=== PATIENT | male | born 1960 | race Caucasian/White ===

== ENCOUNTER 2016-08-22 09:43 | Inpatient (IN) | payer BC ==
--- NOTE | 2016-08-22 10:45 | ED ---
Wayne Hernandez Benjamin, scribed for Ortega Gunderson MD on 08/22/16 at 1022 . HPI Chest Pain - HPI Summary HPI Summary: 56yo male brought in after his stress test showed concerning EKG readings. Pt got a stress test this morning for having on and off chest pain for the last month. Pt denies any CP currently. - History of Current Complaint Chief Complaint: EDChestPainROMI Time Seen by Provider: 08/22/16 09:58 Hx Obtained From: Patient, Family/Uniformer - Onset/Duration: Started Weeks Ago - 4 weeks, Still Present Timing: Intermittent Initial Severity: Moderate Current Severity: None Pain Intensity: 0 Pain Scale Used: 0-10 Numeric Chest Pain Location: Diffuse Chest Pain Radiates: No Aggravating Factor(s): Nothing Alleviating Factor(s): Nothing Associated Signs and Symptoms: Positive: Chest Pain - Allergy/Home Medications Allergies/Adverse Reactions: Allergies Allergy/AdvReac Type Severity Reaction Status Date / Time No Known Allergies Allergy Verified 08/22/16 10:12 PMH/Surg Hx/FS Hx/Imm Hx Endocrine/Hematology History: Reports: Hx Diabetes - Type II Cardiovascular History: Reports: Hx Angina, Hx Hypercholesterolemia, Hx Hypertension Infectious Disease History: No Infectious Disease History: Denies: Traveled Outside the [place] in Last 30 Days - Family History Known Family History: Positive: Cardiac Disease Negative: Hypertension, Diabetes - Social History Occupation: Employed Full-time Lives: With Family Alcohol Use: None Substance Use Type: Reports: None Smoking Status (MU): Former Smoker Type: Cigarettes Have You Smoked in the Last Year: No Review of Systems Constitutional: Negative Eyes: Negative ENT: Negative Positive: Chest Pain Respiratory: Negative Gastrointestinal: Negative Genitourinary: Negative Musculoskeletal: Negative Skin: Negative Neurological: Negative Psychological: Normal All Other Systems Reviewed And Are Negative: Yes Physical Exam Triage Information Reviewed: Yes Vital Signs On Initial Exam: Initial Vitals Temp Pulse Resp BP Pulse Ox 98.0 F 90 20 149/87 96 08/22/16 09:52 08/22/16 09:52 08/22/16 09:52 08/22/16 09:52 08/22/16 09:52 Vital Signs Reviewed: Yes Appearance: Positive: Well-Appearing, No Pain Distress, Well-Nourished Skin: Positive: Warm, Skin Color Reflects Adequate Perfusion, Dry Head/Face: Positive: Normal Head/Face Inspection Eyes: Positive: Normal ENT: Positive: Normal ENT inspection Neck: Positive: Supple, Nontender Respiratory/Lung Sounds: Positive: Clear to Auscultation, Breath Sounds Present Cardiovascular: Positive: RRR Abdomen Description: Positive: Nontender, Soft Bowel Sounds: Positive: Present Musculoskeletal: Positive: Normal Neurological: Positive: Normal Psychiatric: Positive: Affect/Mood Appropriate - Maynor Coma Scale Coma Scale Total: 15 Diagnostics - Vital Signs Vital Signs Temp Pulse Resp BP Pulse Ox 08/22/16 09:55 98.1 F 84 20 149/87 98 08/22/16 09:52 98.0 F 90 20 149/87 96 - Laboratory Lab Statement: Any lab studies that have been ordered have been reviewed, and results considered in the medical decision making process. - EKG 1004. Cardiac Rate: NL - 78bpm EKG Rhythm: Sinus Rhythm ST Segment: Normal Ectopy: None Chest Pain Course/Dx - Course Course Of Treatment: Discussed with Dr. Albright (pool installer) at 1029. Discussed with Dr. Khalil (hospitalist) at 1031. - Diagnoses Provider Diagnoses: Chest pain - Provider Notifications Discussed Care Of Patient With: Dr. Khalil 10:30 Instructed by Provider To: Admit As Inpatient Discharge - Discharge Plan Condition: Stable Disposition: ADMITTED TO [facility] Referrals: Tanmay Campos MD [Primary Care Provider] - The documentation as recorded by the Wayne cosme Benjamin accurately reflects the service I personally performed and the decisions made by me, Ortega Gunderson MD.
[2016-08-22 10:54] LABS: Hematocrit 45 % (42-52); Hemoglobin 15.2 g/dl (14.0-18.0); Mean Corpuscular HGB Conc 34 g/dl (31-36); Mean Corpuscular Hemoglobin 28 pg (27-31); Mean Corpuscular Volume 84 fL (80-94); Mean Platelet Volume 9 um3 (7.4-10.4); Red Blood Count 5.35 10^6/ul (4.0-5.4); Red Cell Distribution Width 14 % (10.5-15); White Blood Count 6.1 10^3/ul (3.5-10.8)
--- NOTE | 2016-08-22 10:58 | RAD ---
Indication: Chest pain. Single frontal view of the chest performed at 1040 hours was reviewed. No prior study is available for comparison. No mediastinal shift is noted. Heart is of normal size and configuration. Lung cisneros appear clear. IMPRESSION: NO ACTIVE CARDIOPULMONARY DISEASE IS NOTED.
[2016-08-22 11:11] LABS: Troponin I 0.06 ng/mL (<0.04)
[2016-08-22 11:15] LABS: Albumin 4.3 g/dL (3.2-5.2); BUN/Creatinine Ratio 19.4 (8-20); Calcium 9.6 mg/dL (8.6-10.3); EGFR African American 101.8 (>60); EGFR Non-African American 79.1 (>60); Globulin 3.2 g/dL (2-4); Total Bilirubin 0.5 mg/dL (0.2-1.0); Total Protein 7.5 g/dL (6.4-8.9)
[2016-08-22] MEDS ORDERED: Dextrose 50% Syringe 50 ML* 25 GM/50 ML SYRINGE IV PUSH PRN (12:00)
[2016-08-22 14:48] LABS: Potassium 4.4 mmol/L (3.5-5.0)
[2016-08-22] MEDS: Insulin LISPRO* 1 UNITS UNIT SUBCUT SCH (17:36)
[2016-08-22] MEDS ORDERED: Metoprolol Tartrate TAB* 25 MG PO SCH (21:00)
--- NOTE | 2016-08-22 21:20 | HP ---
HOSPITAL MEDICINE HISTORY AND PHYSICAL: DATE OF ADMISSION: 08/22/16 ATTENDING PHYSICIAN: Dr. Sarah Khalil *(dictation provided by Mora Ness NP) PRIMARY CARE PHYSICIAN: Dr. Eagle. CHIEF COMPLAINT: Abnormal stress test findings. HISTORY OF PRESENT ILLNESS: Mr. Gilbert is a 56-year-old male with a past medical history of type 2 diabetes, which is noninsulin-dependent, hypertension , and hyperlipidemia as well as obesity and distant history of smoking who presents to the hospital today after having an abnormal stress test. Mr. Gilbert began experiencing chest discomfort along his left chest into his shoulder and arm. This pain occurred with activity only and resolved with rest. The patient was seen in consultation by Dr. Clancy from Cardiology, who increased the patient's metoprolol from once daily to twice daily and ordered an outpatient stress test. The patient presented to the hospital today for an exercise stress test. Dr. Albright reported that the patient had chest pain during the stress test with abnormal ST changes and therefore had him admitted to the hospital through the emergency room. Mr. Gilbert states that he is feeling well now. He has absolutely no chest pain. His first troponin was 0.06. His labs are otherwise unremarkable and his vitals are stable. PAST MEDICAL HISTORY: 1. Type 2 diabetes, [id number]. 2. Hypertension. 3. Hyperlipidemia. 4. Obesity. MEDICATIONS: 1. Tylenol p.r.n. 2. Fluticasone nasal spray p.r.n. 3. Ibuprofen p.r.n. 4. Metformin 750 mg p.o. daily. 5. Aspirin 81 mg p.o. daily. 6. Cholecalciferol 1000 units p.o. daily. 7. Citalopram 10 mg p.o. daily. 8. Metoprolol tartrate 25 mg p.o. b.i.d. 9. Simvastatin 80 mg p.o. daily. ALLERGIES: No known drug allergies. FAMILY HISTORY: The patient reports his daughter at age 22 from heart arrhythmia in the setting of myocarditis. Both of his parents are alive and having no known cardiac issues. SOCIAL HISTORY: The patient's lives with his . He was a former smoker and quit in 2007. There is no report of alcohol or drug use. His would be the healthcare proxy. REVIEW OF SYSTEMS: A 14-point review of systems was completed with Mr. Gilbert and all those not mentioned above were negative. PHYSICAL EXAMINATION GENERAL: Mr. Gilbert is sitting up in the bed, he is in no acute distress. He is calm and cooperative with my examination. VITAL SIGNS: Temperature 97.9, pulse rate 79, respiratory rate 18, O2 saturation 97% on room air, blood pressure 152/75. LUNGS: Clear to auscultation bilaterally with no accessory muscle use and good aeration. HEART: S1 and S2. No murmur, rub, or gallop, and regular. ABDOMEN: Soft and nontender with bowel sounds positive x4. EXTREMITIES: No cyanosis or edema. NEURO: He is alert and oriented x3. He moves all extremities equally. There is no fascial asymmetry or focal weakness. Extraocular movements are intact. SKIN: Intact. DIAGNOSTIC STUDIES/LAB DATA: WBC 6.1, hemoglobin 15.2, hematocrit 45, platelet count 229. Sodium 134, potassium is pending, chloride 103, serum bicarbonate 25, BUN 19, creatinine 0.98, glucose 130, troponin 0.06. ASSESSMENT: Mr. Gilbert is a 56-year-old male with past medical history of type 2 diabetes, which is non-insulin dependent, hypertension, hyperlipidemia, morbid obesity, and smoking who presented to the hospital for an outpatient exercise stress test, which was deemed abnormal by Dr. Albright. The patient is to be observed in the hospital for the following. 1. Abnormal stress test. Mr. Gilbert is feeling now. He has no chest pain at rest. His first troponin was 0.06. I have discussed the case with Dr. Albright. If the patient's troponin arises or he has chest discomfort, we will start the heparin drip, but for now plan for to continue aspirin and his home metoprolol. We will hold metoprolol in a.m. and plans for the resting portion of his nuclear medicine stress test. Dr. Albright is not being consulted formally, but we will provide consultation for any abnormal stress test tomorrow. 2. Type 2 diabetes. Plan to hold metformin and provide blood glucose checks q. meal with sliding scale insulin coverage. 3. Hypertension. Plan to continue metoprolol. 4. Hyperlipidemia. Continue simvastatin. 5. DVT prophylaxis with SCDs. 6. Code status: Full code. TIME SPENT: Approximately 60 minutes were spent on the admission of this patient, more than half the time was spent with the patient at the bedside reviewing the events leading up to this hospitalization, performing the physical examination, and reviewing the plan of care. MORA NESS NP CC: Dr. Eagle* [id number]/[facility] #: [id number] TREVOR
[2016-08-22] MEDS: Atorvastatin* 40 MG TAB PO SCH (21:54)
[2016-08-23] MEDS: Insulin LISPRO* 1 UNITS UNIT SUBCUT SCH ×3 (07:35→15:40)
[2016-08-23] MEDS: Acetaminophen TAB* 325 MG PO PRN ×2 (07:43→17:35)
--- NOTE | 2016-08-23 08:57 | PN ---
Subjective Date of Service: 08/23/16 Interval History: Patient seen this morning. Reports no further chest pain since the episode on the treadmill yesterday. Had resting portion this morning. Family History: Unchanged from Admission Social History: Unchanged from Admission Past Medical History: Unchanged from Admission Objective Active Medications: Acetaminophen (Tylenol Tab*) 975 mg PO Q8H PRN Aspirin (Aspirin Ec Low Dose*) 81 mg PO DAILY [facility] Atorvastatin Calcium (Lipitor*) 40 mg PO 2100 [facility] Cholecalciferol (Vitamin D Tab*) 1,000 units PO DAILY [facility] Citalopram Hydrobromide (Celexa Tab*) 10 mg PO DAILY [facility] Dextrose (D50w Syringe 50 Ml*) 12.5 gm IV PUSH .FOR FS < 60 - SS PRN Insulin Human Lispro (Humalog*) 0 units SUBCUT AC [facility] Vital Signs 08/22/16 08/22/16 08/22/16 11:00 11:15 11:25 Temperature 98.2 F 97.9 F Pulse Rate 80 87 79 Respiratory 16 16 18 Rate Blood Pressure 142/83 142/83 152/75 (mmHg) O2 Sat by Pulse 97 97 Oximetry 08/23/16 08/23/16 00:25 04:20 Temperature 97.1 F 98.2 F Pulse Rate 61 60 Respiratory 16 16 Rate Blood Pressure 120/74 121/69 (mmHg) O2 Sat by Pulse 98 99 Oximetry Oxygen Devices in Use Now: None Appearance: Middle-aged, M, laying in bed in NAD Eyes: No Scleral Icterus Ears/Nose/Mouth/Throat: Mucous Membranes Moist Neck: NL Appearance and Movements; NL JVP Respiratory: Symmetrical Chest Expansion and Respiratory Effort, Clear to Auscultation Cardiovascular: NL Sounds; No Murmurs; No JVD, RRR Abdominal: - - Obese, soft, NTND, BS+ Lymphatic: No Cervical Adenopathy Extremities: No Edema Skin: No Rash or Ulcers Neurological: Alert and Oriented x 3 Result Diagrams: 08/22/16 10:05 08/22/16 10:05 Assess/Plan/Problems-Billing Assessment: Exertional chest pain in a 56 yo M with hx of HTN, HLD, obesity, NIDDM - Patient Problems (1) Exertional chest pain Current Visit: Yes Comment: Concerning for cardiac etiology. Troponins peaked at 0.06. No significant events on tele. Awaiting results from stress test. Continue ASA and Metoprolol. (2) HLD (hyperlipidemia) Current Visit: Yes Comment: Continue statin (3) Diabetes Current Visit: Yes Comment: HISS (4) DVT prophylaxis Current Visit: Yes Comment: SCDs
[2016-08-23] MEDS ORDERED: Aspirin Low Dose CHEW TAB* 81 MG PO ONE (09:00)
--- NOTE | 2016-08-23 09:41 | RAD ---
Indication: Chest pain. Myocardial perfusion scan was performed. Stress myocardial perfusion was performed during treadmill stress study. The maximum heart rate achieved was 93% of the maximum predicted value. Approximately 26.83 mCi of technetium 99m tetrofosmin was injected for the stress portion of the study. The rest portion of the study was performed after intravenous injection of 25.9 mCi of technetium 99m tetrofosmin. The stress images demonstrates a large anterior wall defect which extends to the septum. This appears to reverse on the rest images. This is consistent with a large area of anteroseptal ischemia. Ejection fraction at stress is 45%. Ejection fraction at rest is 64%. Evaluation of wall motion demonstrates anteroseptal hypokinesis with paradoxical motion of the septum. IMPRESSION: Large area of reversible change in the anterior wall extending to the septum. On the stress images there is anteroseptal hypokinesis with paradoxical motion of the septum. Decreased ejection fraction at stress of 45%. ASSESSMENT: High risk Based on imaging criteria from ACC/AHA 2002 Guideline Update for the Management of Patients With Chronic Stable Angina Table 23. Noninvasive Risk Stratification. Reference. HIGH-RISK (GREATER THAN 3% ANNUAL MORTALITY RATE) - Severe resting left ventricular dysfunction (LVEF < 35%) - Severe exercise left ventricular dysfunction (exercise LVEF < 35%) - Stress-induced large perfusion defect (particularly if anterior) - Stress-induced multiple perfusion defects of moderate size - Large, fixed perfusion defect with LV dilation or increased lung uptake (thallium-201) - Stress-induced moderate perfusion defect with LV dilation or increased lung uptake (thallium-201) INTERMEDIATE-RISK (1%-3% ANNUAL MORTALITY RATE) - Mild/moderate resting left ventricular dysfunction (LVEF = 35% to 49%) - Stress-induced moderate perfusion defect without LV dilation or increased lung intake (thallium-201) LOW-RISK (LESS THAN 1% ANNUAL MORTALITY RATE) - Normal or small myocardial perfusion defect at rest or with stress
[2016-08-23] MEDS: Aspirin EC Low Dose* 81 MG TAB.EC PO SCH (09:42)
[2016-08-23] MEDS: Metoprolol Tartrate TAB* 25 MG PO SCH ×2 (09:42→21:11)
[2016-08-23] MEDS: Cholecalciferol TAB* 1000 UNITS PO SCH (09:42)
[2016-08-23] MEDS: Citalopram TAB* 10 MG PO SCH (09:42)
[2016-08-23] MEDS ORDERED: NS 0.45% 1000 ML BAG* 1,000 ML IV SCH (12:00)
[2016-08-23] MEDS ORDERED: diPHENhydraMINE PO* 50 MG PO SCH (12:00)
[2016-08-23] MEDS ORDERED: Diazepam TAB(*) 5 MG PO SCH (12:00)
[2016-08-23] MEDS ORDERED: Lidocaine 1% INJ* 10 MG/ML 30 ML SDV ONE (12:18)
[2016-08-23] MEDS ORDERED: fentaNYL* 50 MCG/ML 2 ML VIAL (100 MCG VIAL) ONE (12:18)
[2016-08-23] MEDS ORDERED: Heparin 2 UNITS/ML IVPREMIX* 3,000 ML IV ONE (12:18)
[2016-08-23] MEDS ORDERED: Midazolam* 1 MG/ML 5 ML VIAL (5 MG) ONE (12:18)
[2016-08-23] MEDS ORDERED: Iohexol 350 (CONTRAST) 200 ML MDV IV ONE (12:18)
--- NOTE | 2016-08-23 12:24 | ECHO ---
Patient: MISTY VASQUEZ [facility] Rec#: [id number] : 1960 Date: 08/23/2016 Age: 56y Height: 170.2 cm / 67.0 in Weight: 110.2 kg / 242.9 lbs Sex: M BSA: 2.2 Room#: [facility] Admit Date#: 08/22/2016 Type: Inpatient Referring: ANNE VELÁSQUEZ MD Reading: Shailesh Albright MD Base Remover: Rachell Hernandez RN RDCS CC: Tanmay Campos MD Transthoracic Echocardiogram Indication: Chest pain, abnormal stress test BP: 135/71 HR: 58 Rhythm: Bradycardia Findings History: HTN, HLD, NIDDM, obesity Technical Comments: The study quality is fair. The study is technically limited due to patient body habitus. Completed at 1215. Left Ventricle: The left ventricular chamber size is normal. Mild concentric left ventricular hypertrophy is observed. There is increased basal septal hypertrophy noted without evidence of an increased gradient across the left ventricular outflow tract. Mild global hypokinesis of the left ventricle is observed. There is mildly decreased left ventricular systolic function. The estimated ejection fraction is 45-50%. There is no consistent Doppler evidence of clinically significant diastolic dysfunction. Left Atrium: The left atrial chamber size is normal. Right Ventricle: The right ventricular cavity size is normal. The right ventricular global systolic function is low normal. Right Atrium: The right atrial cavity size is normal. Aortic Valve: The aortic valve is trileaflet. The aortic valve leaflets are mildly thickened. There is no evidence of aortic regurgitation. There is no evidence of aortic stenosis. Mitral Valve: The mitral valve leaflets are mildly thickened. There is a trace of mitral regurgitation. There is no evidence of mitral stenosis. Tricuspid Valve: The tricuspid valve leaflets are normal. There is trace tricuspid regurgitation. Unable to estimate the right ventricular systolic pressure. Pulmonic Valve: The pulmonic valve structure is not well visualized. There is a trace pulmonic regurgitation. There is no pulmonic stenosis. Pericardium: There is no significant pericardial effusion. A pericardial fat pad is visualized. Aorta: There is no dilatation of the ascending aorta. There is no dilatation of the aortic arch. There is no dilation of the aortic root. Pulmonary Artery: The main pulmonary artery is not well visualized. Venous: The venous system is not well visualized. The inferior vena cava is not visualized. Summary: There was not any prior study for comparison. Conclusions The left ventricular chamber size is normal. Mild concentric left ventricular hypertrophy is observed. There is increased basal septal hypertrophy noted without evidence of an increased gradient across the left ventricular outflow tract. Mild global hypokinesis of the left ventricle is observed. The estimated ejection fraction is 45-50%. There is a trace of mitral regurgitation. There is trace tricuspid regurgitation. There is a trace pulmonic regurgitation. Measurements Name Value Normal Range RVDdMajor (2D) 4.2 cm (2.2 - 4.4) RAd ISD 4CH 4.3 cm (3.4 - 4.9) RA (A4C)W 3.3 cm (2.9 - 4.6) IVSd (2D) 1.3 cm (0.6 - 1) LVPWd (2D) 1.1 cm (0.6 - 1) LVIDd (2D) 4.2 cm (3.6 - 5.4) LVIDs (2D) 3.2 cm - LV FS (2D) 24 % (25 - 45) Aortic Annulus 2.3 cm (1.4 - 2.6) Ao root diameter (2D) 3.2 cm (2.1 - 3.5) Ascending Ao 2.7 cm (2.1 - 3.4) Aortic arch 2.5 cm (1.8 - 3.4) LA dimension (AP) 2D 3.5 cm (2.3 - 3.8) LAd ISD 4CH 4.7 cm (2.9 - 5.3) LA ISD 4CH W 4.4 cm (2.5 - 4.5) Name Value Normal Range LA ESV SP 4CH (A/L) 50 ml - LA ESV SP 2CH (A/L) 39 ml - LA ESV BP (A/L) 44 ml - LA ESV BP (A/L) index 20.1 ml/m2 - LA ESV SP 4CH (MOD) 48 ml - LA ESV SP 2CH (MOD) 36 ml - Name Value Normal Range MV E-wave Vmax 0.69 m/sec - MV deceleration time 203 msec - MV A-wave Vmax 0.8 m/sec - MV E:A ratio 0.85 ratio - LV septal e' Vmax 0.07 m/sec - LV lateral e' Vmax 0.11 m/sec - LV E:e' septal ratio 9.9 ratio - LV E:e' lateral ratio 6.3 ratio - Name Value Normal Range AV Vmax 0.83 m/sec - AV VTI 20.6 cm - AV peak gradient 3 mmHg - AV mean gradient 2 mmHg - LVOT Vmax 0.74 m/sec - LVOT VTI 16.8 cm - NEVIN Vmax 0.72 m/sec - Name Value Normal Range PV Vmax 0.71 m/sec -
[2016-08-23] MEDS ORDERED: Heparin(*) 1000 UNIT/ML 10 ML VIAL CATH LAB IV ONE (13:05)
[2016-08-23] MEDS ORDERED: nitroGLYCERIN DRIP* 250 ML ONE (13:05)
[2016-08-23] MEDS ORDERED: Bivalirudin(*) 250 MG VIAL ONE (13:08)
[2016-08-23] MEDS ORDERED: Ticagrelor* 90 MG TAB PO ONE (13:13)
[2016-08-23] MEDS ORDERED: Nitroglycerin TAB 0.4 MG* 0.4 MG TAB SL PRN (13:51)
[2016-08-23] MEDS ORDERED: NS 0.9% 1000 ML* 1,000 ML IV SCH (14:00)
--- NOTE | 2016-08-23 20:36 | CONS ---
CC: Dr. Clancy; Hospitalist Service; Dr. Albright; Dr. Eagle CARDIOLOGY CONSULT: DATE OF CONSULT: 08/23/16 PRIMARY GREY GOODS MARKER: Dr. Clancy. HISTORY OF PRESENT ILLNESS: The patient is a 56-year-old male patient with significant comorbiditie s including systemic arterial hypertension, diabetes mellitus type 2 non-insulin dependent, hyperlip idemia, obesity, and history of tobacco consumption in the past, he quit. He was seen by Dr. Clancy recently for ongoing symptoms of chest pain of 1 to 2 months, anginal, concerning. He was schedule d for an outpatient nuclear Myoview stress test. He was able to exercise for 60 minutes during the exercise time. He had symptoms of chest pain and concerning ST-T changes abnormality inferiorly 2, 3, and aVF. He was hospitalized because of his symptoms of chest pain and abnormal EKG changes and underwent resting nuclear images this morning. The rest and distress SPECT images were evaluated an d they are concerning for at least moderate to large area of reversible ischemia of at least the ant erior wall and was reported to be high risk. Because of that, cardiology consult was further reques arleen to discuss with the patient cardiac catheterization to evaluate his coronary anatomy. Currently , he is chest pain free. He gives no nausea. No vomiting. No hematochezia. No skin rash. No abd ominal pain. No syncope. No orthopnea. No PND. No history of myocardial infarction in the past. His troponin first one was 0.06. PAST MEDICAL HISTORY: Includes hyperlipidemia, obesity, type 2 diabetes mellitus non-insulin depend ent and hypertension. MEDICATIONS: His medications as an outpatient include: 1. Ibuprofen p.r.n. 2. Metformin 750 mg daily. 3. Aspirin 81 mg daily. 4. Metoprolol 25 mg twice a day. 5. Simvastatin 80 mg daily. 6. Tylenol p.r.n. ALLERGIES: No known drug allergies. FAMILY HISTORY: He said that his daughter at age 22 from certain heart arrhythmia, possible myocard itis. No history of coronary artery disease in his family. SOCIAL HISTORY: He lives with his . He used to smoke, he quit in 2007. No history of alcohol or drug abuse. REVIEW OF SYSTEMS: His review of all other systems essentially is negative. PHYSICAL EXAMINATION: On exam, he is awake, alert, and oriented. He is not in any acute distress. Vital Signs: Blood pressure 120/70, pulse 70s with sinus rhythm. Head and neck exam: Normocephali c, atraumatic head. Ear, nose, and throat: Essentially benign. Neck: Supple. JVP is not elevated . No carotid bruits. No masses in the neck is appreciated. Chest: Clear to auscultation. No ral es, no wheeze. No added sounds are appreciated. Heart: Normal. Regular S1, S2. No added sounds. No gallops. No rubs. Abdomen: Benign. Positive bowel sounds. Extremities: No edema, no cyanos is, no clubbing. Skin exam: Normal. Psych: Normal affect and mood. SHRINKER: No focal deficits appre ciated. DIAGNOSTIC STUDIES/LAB DATA: White blood cell 6.1, hemoglobin 15.2, hematocrit 45, and platelets 22 9. His chemistry; sodium 134, potassium 4.4, chloride 103, CO2 25. BUN 19 and creatinine 0.98. Tro ponin 0.06, then 0.06, then 0.05. LFTs are normal. His nuclear Myoview stress test has reported the patient to have a high risk. There is large area of reversible ischemic changes of the anterior wal l extended to the septum. His ejection fraction was calculated to be 45%. IMPRESSION: The patient is a 56-year-old male with: 1. Strongly abnormal high risk Myoview nuclear stress test for reversible ischemia of the anterior wall extending to the septum. 2. Systemic arterial hypertension. 3. Diabetes mellitus type 2, non-insulin dependent. 4. Hyperlipidemia. 5. Obesity. 6. Distant history of tobacco consumption. PLAN: This patient needs further evaluation by cardiac catheterization to evaluate his coronary jesika meghan based on his symptoms of chest pain, which are concerning for angina, strongly abnormal nuclear Myoview stress test and his comorbidities. I explained the benefits and the risks, he is willing t o proceed. Any further recommendations will be based on the results of his cardiac catheterization. Meanwhile, he is to continue on aspirin, beta tiburcio treatment, statin, he is chest pain free, he is hemodynamically stable at the present time. We will obtain an echo to review his left ventricula r systolic function on the nuclear Myoview stress test. Any further recommendations pending his cli nical outcome. I answered all his concerns and questions up to his satisfaction. Thank you very much for asking us to participate in the care of this patient. [id number]/[facility] #: [id number]
[2016-08-23] MEDS: Ticagrelor* 90 MG TAB PO SCH (21:11)
[2016-08-23] MEDS: Atorvastatin* 40 MG TAB PO SCH (21:11)
--- NOTE | 2016-08-24 02:07 | CATH ---
CC: Dr. Clancy; Hospitalist Service; Dr. Albright; Dr. Tanmay Eagle CARDIAC CATHETERIZATION: DATE OF TEST: 08/23/16 PROCEDURE: Left cardiac catheterization, selective coronary angiography, left ventriculography. HISTORY OF PRESENT ILLNESS: The patient is a 56-year-old male patient who was seen recently by Dr. Clancy, his primary alining inspector for symptoms of chest pain concerning for angina. He does have sig nificant comorbidities including history of tobacco consumption, diabetes mellitus, hypertension, hy perlipidemia and obesity. He underwent an outpatient nuclear Myoview stress test that was strongly a bnormal for large area of reversible ischemia of the anterior wall extended to the septum. His left ventricular systolic function was calculated at 45%. He was further referred for a cardiac catheter ization to evaluate his coronary anatomy. His nuclear stress test was high risk. PROCEDURE IN DETAIL: After informed written consent had been obtained, the patient was brought into the cardiac catheterization lab where the right femoral region was prepped and draped in the usual sterile fashion. 1% Xylocaine was used for local anesthesia. Next, the right femoral artery was en tered and a 6-Bulgarian sheath placed into the right femoral artery. Through the right femoral arteria l sheath, a 6-Bulgarian JL4 catheter was advanced over the arch of the aorta, left coronary engaged and left coronary arteriography performed. This catheter was removed and a 6-Bulgarian JR4 catheter was a dvanced over the arch of the aorta, right coronary engaged, and right coronary arteriography perform ed. This catheter was removed. Actually using the same catheter, I was able to cross the aortic ida ve into the left ventricle and the pressure recordings from the left ventricle and pullback in the a davis was used. The left ventriculography itself was not performed as the patient just had a transth oracic echocardiogram this morning and to minimize dye exposure in a diabetic patient to minimize an y risk for nephrotic toxicity. At this point, I discussed this patient further with Dr. Muñoz from the interventional cardiology services who kindly reviewed the findings and a decision to proceed w ith further intervention with angioplasty and stenting of severe stenosis of the mid LAD. HEMODYNAMI CS: The aortic pressure is 137/75 mmHg, left ventricle 145 with an LVEDP of 12 mmHg. Left main coronary artery. The left main coronary artery was a good caliber vessel. It gave rise t o left anterior descending artery and circumflex coronary artery. The left main was free of any sig nificant disease. Left anterior descending artery. The left anterior descending artery was a good caliber vessel. It did reach and wrap around the apex of the left ventricle. In the mid segment of the LAD, there is severe stenosis of 99% with JAMI-3 flow. Circumflex coronary artery. The circumflex coronary artery, shortly after it takes off from the lef t main, it bifurcates into good caliber vessels obtuse marginal that has in them about 40% to 50% no ncritical disease in both of them. Right coronary artery. The right coronary artery was a large caliber vessel. It was dominant. It has mild irregularities without any definite obstructive disease. Left ventriculography. Left ventriculography pressure recordings from the aorta is 137/75 mmHg. Le ft ventricle 145 with an LVEDP of 12 mmHg. CONCLUSION: 1. Severe 99% stenosis of the mid LAD as described. 2. Please refer to a separate report as per intervention of the left anterior descending artery wit h angioplasty and stenting as per Dr. Muñoz. [id number]/[facility] #: [id number]
[2016-08-24 06:20] LABS: Hematocrit 41 % (42-52); Hemoglobin 14.2 g/dl (14.0-18.0); Mean Corpuscular HGB Conc 34 g/dl (31-36); Mean Corpuscular Hemoglobin 29 pg (27-31); Mean Corpuscular Volume 83 fL (80-94); Mean Platelet Volume 8 um3 (7.4-10.4); Red Blood Count 4.94 10^6/ul (4.0-5.4); Red Cell Distribution Width 14 % (10.5-15); White Blood Count 7.7 10^3/ul (3.5-10.8)
[2016-08-24 06:22] LABS: BUN/Creatinine Ratio 16.1 (8-20); Calcium 9.2 mg/dL (8.6-10.3); EGFR African American 108.1 (>60)
--- NOTE | 2016-08-24 08:47 | PN ---
Subjective Date of Service: 08/24/16 Interval History: Patient seen this morning. Feels well, no chest pain, SOB, groin discomfort. Explained that he was noted to have first degree AV block on tele. Family History: Unchanged from Admission Social History: Unchanged from Admission Past Medical History: Unchanged from Admission Objective Active Medications: Acetaminophen (Tylenol Tab*) 975 mg PO Q8H PRN Aspirin (Aspirin Ec Low Dose*) 81 mg PO DAILY [facility] Atorvastatin Calcium (Lipitor*) 40 mg PO 2100 [facility] Cholecalciferol (Vitamin D Tab*) 1,000 units PO DAILY [facility] Citalopram Hydrobromide (Celexa Tab*) 10 mg PO DAILY [facility] Dextrose (D50w Syringe 50 Ml*) 12.5 gm IV PUSH .FOR FS < 60 - SS PRN Insulin Human Lispro (Humalog*) 0 units SUBCUT AC [facility] Metoprolol Tartrate (Lopressor Tab*) 25 mg PO BID [facility] Nitroglycerin (Nitroglycerin Tab 0.4 Mg*) 0.4 mg SL Q5M PRN Ticagrelor (Brilinta*) 90 mg PO BID [facility] Vital Signs 08/23/16 08/23/16 08/23/16 14:05 14:06 14:30 Temperature Pulse Rate 59 59 Respiratory 16 Rate Blood Pressure 125/64 112/57 (mmHg) O2 Sat by Pulse 95 96 Oximetry 08/23/16 08/23/16 08/23/16 14:45 15:00 15:15 Temperature Pulse Rate 63 63 57 Respiratory 16 12 11 Rate Blood Pressure 114/57 115/70 119/57 (mmHg) O2 Sat by Pulse 95 96 95 Oximetry 08/24/16 08/24/16 08/24/16 05:30 06:00 07:39 Temperature 97.7 F Pulse Rate 52 59 Respiratory 10 11 Rate Blood Pressure 125/64 (mmHg) O2 Sat by Pulse 96 96 Oximetry Oxygen Devices in Use Now: None Appearance: Middle-aged, M, sitting in chair in NAD Eyes: No Scleral Icterus Ears/Nose/Mouth/Throat: Mucous Membranes Moist Neck: NL Appearance and Movements; NL JVP Respiratory: Symmetrical Chest Expansion and Respiratory Effort, Clear to Auscultation Cardiovascular: NL Sounds; No Murmurs; No JVD, RRR Abdominal: NL Sounds; No Tenderness; No Distention Lymphatic: No Cervical Adenopathy Extremities: No Edema Skin: No Rash or Ulcers, - - R groin site c/d/i, no ecchymoses Neurological: Alert and Oriented x 3 Result Diagrams: 08/24/16 05:50 08/24/16 05:50 Assess/Plan/Problems-Billing Assessment: Exertional chest pain in a 56 yo M with hx of HTN, HLD, obesity, NIDDM - Patient Problems (1) CAD (coronary artery disease) Current Visit: Yes Comment: S/P DOLLY to LAD on 08/23/16. Continue ASA, ticagrelor , statin, metoprolol. Encouraged to exercise more and change dietary habits, lose weight. (2) HLD (hyperlipidemia) Current Visit: Yes Comment: Continue statin (3) Diabetes Current Visit: Yes Comment: HISS (4) First degree AV block Current Visit: Yes Comment: Noted. HI ~ 300 (5) DVT prophylaxis Current Visit: Yes Comment: SCDs Status and Disposition: Likely discharge this afternoon
[2016-08-24] MEDS: Aspirin EC Low Dose* 81 MG TAB.EC PO SCH (09:09)
[2016-08-24] MEDS: Cholecalciferol TAB* 1000 UNITS PO SCH (09:09)
[2016-08-24] MEDS: Citalopram TAB* 10 MG PO SCH (09:09)
[2016-08-24] MEDS: Metoprolol Tartrate TAB* 25 MG PO SCH (09:09)
[2016-08-24] MEDS: Ticagrelor* 90 MG TAB PO SCH (09:09)
[2016-08-24] MEDS: Insulin LISPRO* 1 UNITS UNIT SUBCUT SCH (09:16)
[2016-08-24 10:20] VITALS: BP 117/59
--- NOTE | 2016-08-25 06:03 | DS ---
CC: Dr. Eagle; Dr. Albright DISCHARGE SUMMARY: DATE OF ADMISSION: 08/22/16 DATE OF DISCHARGE: 08/24/16 PRIMARY CARE PHYSICIAN: Dr. Eagle. PRINCIPAL DISCHARGE DIAGNOSES: 1. Angina. 2. Coronary artery disease, status post stent placement. SECONDARY DIAGNOSES: 1. Hypertension. 2. Hyperlipidemia. 3. Obesity. 4. Type 2 diabetes. DISCHARGE MEDICATION REGIMEN: 1. Ticagrelor 90 mg by mouth 2 times daily. 2. Vitamin D 1000 units by mouth daily. 3. Metoprolol tartrate 25 mg by mouth 2 times daily. 4. Tylenol 1000 mg by mouth 3 times daily as needed for pain. 5. Metformin 750 mg by mouth daily. 6. Aspirin 81 mg by mouth daily. 7. Citalopram 10 mg by mouth daily. 8. Flonase 50 mcg intranasal daily as needed for allergies. 9. Simvastatin 80 mg by mouth daily. STUDIES DURING HOSPITALIZATION: Chest x-ray, impression: No active cardiopulmonary disease is noted. Transthoracic echocardiogram, conclusion: Left ventricular chamber size is normal, mild concentric LVH is observed, there is an increased basal septal hypertrophy noted without evidence of an increased gradient across the left ventricular outflow tract, mild global hypokinesis of the left ventricle is observed. The estimated ejection fraction is 45% to 50%. There is trace mitral regurgitation, trace tricuspid regurgitation, trace pulmonic regurgitation. Nuclear cardiac stress test, impression: Large area of reversible change in the anterior wall extending to the septum. On the stress images, there is anteroseptal hypokinesis with paradoxical motion of the septum. Decreased ejection fraction at stress of 45%. Assessment: High risk. Cardiac catheterization report, conclusion: Severe 99% stenosis at the mid LAD. Please refer to separate report as for intervention of the LAD with angioplasty and stenting as per Dr. Muñoz. Cardiology report from Dr. Muñoz is not available at this time. HISTORY OF PRESENT ILLNESS AND HOSPITAL SUMMARY: Please see the full history and physical by Mora Ness NP, for full details. Briefly, Mr. Gilbert is a 56-year- old man with a past medical history as above, who presented to the hospital after he began to experience exertional chest pain. He was referred by Dr. Clancy, Cardiology, to have a stress test done. Dr. Albright performed this stress test as an outpatient and the patient had chest pain during the stress test with ST changes and was sent to the emergency department. His chest pain resolved at the stress test in the ED and throughout the hospitalization, he had no further episodes. He had mild bump in his troponin to 0.06, which was the peak. The patient underwent the resting portion of the stress test the following day and was noted to have reversible defect as noted above. The patient underwent an echocardiogram and subsequently catheterization by Dr. Albright. A 99% LAD lesion was found on diagnostic cath and Dr. Muñoz performed intervention placing a drug-eluting stent to the LAD. The patient remained symptom free. He was noted to have first-degree heart block with longest MD interval noted at 300 milliseconds. The patient was discharged on appropriate cardiac medications. He will follow up with his PCP and with Dr. Albright as an outpatient. TIME SPENT: Total time spent on this discharge 40 minutes. This is a summary of the hospitalization. Please see the full medical record for further details. [id number]/[facility] #: [id number] MTDD
== END 2016-08-24 11:35 | disposition home or self-care (01) | DRG 175 ==
LOC: ED 09:43 → MEDTELE 10:34 → OBSVTOIN 08-23 12:03 → ICU 08-23 13:53
PROVIDERS: ADMIT Hospitalist; ATTEND Hospitalist
PROC: B2151ZZ Fluoroscopy of Left Heart using Low Osmolar Contrast (ICD-10-PCS; 2016-08-23)
PROC: 4A023N7 Measurement of Cardiac Sampling and Pressure, Left Heart, Percutaneous Approach (ICD-10-PCS; 2016-08-23)
PROC: 027034Z Dilation of Coronary Artery, One Artery with Drug-eluting Intraluminal Device, Percutaneous Approach (ICD-10-PCS; 2016-08-23)
PROC: B2111ZZ Fluoroscopy of Multiple Coronary Arteries using Low Osmolar Contrast (ICD-10-PCS; principal; 2016-08-23 12:15)
DX: I25.119 Atherosclerotic heart disease of native coronary artery with unspecified angina pectoris (principal); E66.01 Morbid (severe) obesity due to excess calories; I10 Essential (primary) hypertension; E11.9 Type 2 diabetes mellitus without complications; E78.5 Hyperlipidemia, unspecified; E78.00 Pure hypercholesterolemia, unspecified; I08.1 Rheumatic disorders of both mitral and tricuspid valves; R40.2412 Glasgow coma scale score 13-15, at arrival to emergency department; I44.0 Atrioventricular block, first degree; Z79.02 Long term (current) use of antithrombotics/antiplatelets; Z79.82 Long term (current) use of aspirin; Z79.84 Long term (current) use of oral hypoglycemic drugs; Z68.37 Body mass index [BMI] 37.0-37.9, adult; Z82.49 Family history of ischemic heart disease and other diseases of the circulatory system; Z87.891 Personal history of nicotine dependence
CPT/HCPCS: 36415; 71010; 80048; 80053; 83605; 84484; 85025; 93005; 93017; 93306; 93458; A9270-GY; C1725; C1760; C1769; C1876; C1887; C9600-LD; G0378; J1644; J2001; J2250; J3010